=== PATIENT | male | born 1955 | race Caucasian/White ===

== ENCOUNTER 2021-07-23 13:12 | Inpatient (IN) ==
[2021-07-23] MEDS ORDERED: levoFLOXacin 750 MG/150 ML 750 MG/150 ML BAG IVPB ONE (13:39)
[2021-07-23] MEDS ORDERED: methylPREDNISolone 125 MG/2 ML VIAL IVP ONE (13:39)
[2021-07-23] MEDS ORDERED: Ipratropium/Albuterol Neb 3 ML IH ONE (13:39)
[2021-07-23 14:14] LABS: Basophils # 0.2 K/mcL (0.0-0.2); Basophils % 1.2 %; Eosinophils # 0.1 K/mcL (0.0-0.6); Eosinophils % 0.7 %; Hematocrit 48.2 % (37.5-50.1); Hemoglobin 16.2 g/dL (12.9-16.9); Lymphocytes # 2.1 K/mcL (0.6-4.6); Lymphocytes % 12.1 %; Mean Corpuscular HGB Conc 33.6 g/dL (31.6-35.5); Mean Corpuscular Hemoglobin 29.9 pg (28.0-33.3); Mean Corpuscular Volume 89.1 fL (83.0-100.0); Mean Platelet Volume 9.7 fL (9.4-12.4); Monocytes % 11.7 %; Neutrophils # 12.8 K/mcL (1.6-8.9); Platelet Count 331 K/mcL (140-400); Red Blood Count 5.41 M/mcL (4.19-5.50); Red Cell Distribution Width 13.3 % (11.5-14.5); Segmented Neutrophils % 73.3 %; White Blood Count 17.5 K/mcL (4.3-11.1)
[2021-07-23 14:23] LABS: BUN/Creatinine Ratio 13 (6-26); Blood Urea Nitrogen 9 mg/dL (8-23); Calcium 9.2 mg/dL (8.6-10.3); Carbon Dioxide 36 mEq/L (23-29); Chloride 98 mEq/L (98-107); Glucose 129 mg/dL (70-105); Osmolality,Calculated 278 (280-300); Potassium 3.3 mEq/L (3.5-5.1); Sodium 134 mEq/L (136-145); Troponin I 0.12 ng/mL (< 0.04); eGFR For African Americans > 60 (> 60); eGFR For Non-African Americans > 60 (> 60)
[2021-07-23 18:11] LABS: Adenovirus Not Detected (Not Detect); Bordetella Pertussis Not Detected (Not Detect); Chlamydophila pneumoniae Not Detected (Not Detect); Coronavirus 229E Not Detected (Not Detect); Coronavirus HKU1 Not Detected (Not Detect); Coronavirus NL63 Not Detected (Not Detect); Coronavirus OC43 Not Detected (Not Detect); Human Metapneumovirus Not Detected (Not Detect); Human Rhinovirus/Enterovirus Not Detected (Not Detect); Influenza A Subtype 2009 H1 Not Detected (Not Detect); Influenza B Not Detected (Not Detect); Mycoplasma pneumoniae Not Detected (Not Detect); Parainfluenza Virus 1 Not Detected (Not Detect); Parainfluenza Virus 2 Not Detected (Not Detect); Parainfluenza Virus 3 Not Detected (Not Detect); Parainfluenza Virus 4 Not Detected (Not Detect); Respiratory Syncytial Virus Not Detected (Not Detect); SARS-CoV-2 Not Detected (Not Detect)
[2021-07-23] MEDS ORDERED: Naloxone 0.4 MG/ML INJ IVP PRN (18:25)
[2021-07-23] MEDS ORDERED: Ondansetron 4 MG/2 ML VIAL IVP PRN (18:25)
[2021-07-23] MEDS ORDERED: 0.9 % Sodium Chloride 1,000 ML IVC ONE (18:28)
[2021-07-23] MEDS: *HR* Heparin 5,000 UNIT/ML VIAL SQ SCH (19:46)
[2021-07-23] MEDS: Ringers Solution, Lactated 1,000 ML IVC SCH (19:51)
[2021-07-23] MEDS: Budesonide/Formoterol 160/4.5 1 PUFF INH IH SCH (22:28)
[2021-07-23] MEDS: Ipratropium/Albuterol Neb 3 ML IH SCH (22:28)
[2021-07-24 01:37] LABS: Basophils # 0.1 K/mcL (0.0-0.2); Basophils % 0.7 %; Hematocrit 47.8 % (37.5-50.1); Hemoglobin 15.4 g/dL (12.9-16.9); Immature Granulocytes % 1.1 % (0-4); Lymphocytes # 1.3 K/mcL (0.6-4.6); Lymphocytes % 9.1 %; Mean Corpuscular HGB Conc 32.2 g/dL (31.6-35.5); Mean Corpuscular Hemoglobin 29.2 pg (28.0-33.3); Mean Corpuscular Volume 90.7 fL (83.0-100.0); Mean Platelet Volume 9.4 fL (9.4-12.4); Monocytes # 0.6 K/mcL (0.0-1.3); Monocytes % 3.8 %; Neutrophils # 12.5 K/mcL (1.6-8.9); Platelet Count 282 K/mcL (140-400); Red Blood Count 5.27 M/mcL (4.19-5.50); Red Cell Distribution Width 13.3 % (11.5-14.5); Segmented Neutrophils % 85.3 %; White Blood Count 14.7 K/mcL (4.3-11.1)
[2021-07-24 02:00] LABS: BUN/Creatinine Ratio 16 (6-26); Blood Urea Nitrogen 13 mg/dL (8-23); Calcium 9.1 mg/dL (8.6-10.3); Carbon Dioxide 37 mEq/L (23-29); Chloride 101 mEq/L (98-107); Glucose 156 mg/dL (70-105); Magnesium 2.5 mg/dL (1.6-2.6); Osmolality,Calculated 291 (280-300); Potassium 4.1 mEq/L (3.5-5.1); Sodium 139 mEq/L (136-145); Troponin I 0.04 ng/mL (< 0.04); eGFR For African Americans > 60 (> 60); eGFR For Non-African Americans > 60 (> 60)
[2021-07-24] MEDS: Ipratropium/Albuterol Neb 3 ML IH SCH ×4 (03:21→20:01)
[2021-07-24] MEDS: Ringers Solution, Lactated 1,000 ML IVC SCH (05:32)
[2021-07-24] MEDS: *HR* Heparin 5,000 UNIT/ML VIAL SQ SCH ×3 (05:33→20:27)
[2021-07-24] MEDS: MethylPREDNISolone 40 MG/ML VIAL IVP SCH ×2 (05:33→17:32)
[2021-07-24] MEDS: Metoprolol XL (24 HR) Succ 50 MG TAB.ER.24H PO SCH ×2 (08:01→08:05)
[2021-07-24] MEDS: levoFLOXacin 750 MG/150 ML 750 MG/150 ML BAG IVPB SCH (08:01)
[2021-07-24] MEDS: Budesonide/Formoterol 160/4.5 1 PUFF INH IH SCH ×2 (10:27→20:01)
[2021-07-24] MEDS ORDERED: Metoprolol XL (24 HR) Succ 50 MG TAB.ER.24H PO SCH (18:00)
[2021-07-25 01:26] LABS: Basophils # 0.1 K/mcL (0.0-0.2); Basophils % 0.4 %; Hematocrit 44.5 % (37.5-50.1); Hemoglobin 14.5 g/dL (12.9-16.9); Immature Granulocytes % 1.6 % (0-4); Lymphocytes # 2.2 K/mcL (0.6-4.6); Lymphocytes % 9.1 %; Mean Corpuscular HGB Conc 32.6 g/dL (31.6-35.5); Mean Corpuscular Hemoglobin 29.7 pg (28.0-33.3); Mean Corpuscular Volume 91.2 fL (83.0-100.0); Mean Platelet Volume 9.4 fL (9.4-12.4); Monocytes # 1.4 K/mcL (0.0-1.3); Monocytes % 5.8 %; Neutrophils # 20.4 K/mcL (1.6-8.9); Platelet Count 325 K/mcL (140-400); Red Blood Count 4.88 M/mcL (4.19-5.50); Red Cell Distribution Width 13.6 % (11.5-14.5); Segmented Neutrophils % 83.1 %
[2021-07-25 01:28] LABS: White Blood Count 24.6 K/mcL (4.3-11.1)
[2021-07-25 01:42] LABS: BUN/Creatinine Ratio 18 (6-26); Blood Urea Nitrogen 14 mg/dL (8-23); Calcium 8.5 mg/dL (8.6-10.3); Carbon Dioxide 33 mEq/L (23-29); Chloride 101 mEq/L (98-107); Glucose 168 mg/dL (70-105); Osmolality,Calculated 294 (280-300); Potassium 3.9 mEq/L (3.5-5.1); Sodium 140 mEq/L (136-145); eGFR For African Americans > 60 (> 60); eGFR For Non-African Americans > 60 (> 60)
[2021-07-25] MEDS: Ipratropium/Albuterol Neb 3 ML IH SCH ×3 (03:51→11:09)
[2021-07-25] MEDS: MethylPREDNISolone 40 MG/ML VIAL IVP SCH (05:22)
[2021-07-25] MEDS: *HR* Heparin 5,000 UNIT/ML VIAL SQ SCH ×2 (05:23→13:13)
[2021-07-25] MEDS: levoFLOXacin 750 MG/150 ML 750 MG/150 ML BAG IVPB SCH (08:18)
[2021-07-25 10:23] VITALS: BP 109/62; PULSE 94; TEMP 97.8
[2021-07-25] MEDS: Budesonide/Formoterol 160/4.5 1 PUFF INH IH SCH (11:09)
[2021-07-25 12:34] VITALS: O2SAT 95
== END 2021-07-25 13:56 | disposition home or self-care (01) | DRG 871 ==
LOC: 3BNU 13:12 → EMEROOARM 13:12 → SUATTDRO 16:47 → 3BNU 18:52
PROVIDERS: ADMIT Family Medicine; ATTEND Family Medicine